=== PATIENT | female | born 1990 | race Caucasian/White ===

== ENCOUNTER → 2017-11-25 | Outpatient (CLI) | payer OTHER | END | disposition home or self-care (01) | LOC: PLD 08:08 → LAB SHORT 08:08 | DX: D22.21 Melanocytic nevi of right ear and external auricular canal (principal) | CPT/HCPCS: 88305 ==

== ENCOUNTER → 2017-12-10 | Outpatient (CLI) | payer OTHER ==
[2017-12-11 11:28] LABS: Candida species (DNA Probe) Negative (NEGATIVE); G. vaginalis (DNA Probe) Positive (NEGATIVE); T. vaginalis (DNA Probe) Negative (NEGATIVE)
== END | disposition home or self-care (01) ==
LOC: LAB 11:31
PROVIDERS: Nurse Practitioner Obstetrics & Gynecology
DX: N76.0 Acute vaginitis (principal)
CPT/HCPCS: 87480; 87510; 87660

== ENCOUNTER → 2018-01-05 | Outpatient (CLI) | payer OTHER ==
[2018-01-07 13:33] LABS: HPV Genotype 16 Not Detected (NOTDET); HPV Genotype 18 Not Detected (NOTDET)
[2018-01-17 10:55] LABS: HPV High Risk Other Detected (NOTDET)
== END | disposition home or self-care (01) ==
LOC: LAB 12:25
PROVIDERS: Nurse Practitioner Obstetrics & Gynecology
DX: Z01.419 Encounter for gynecological examination (general) (routine) without abnormal findings (principal)
CPT/HCPCS: 87624; G0123

== ENCOUNTER → 2018-05-27 | Outpatient (CLI) | payer OTHER | END | disposition home or self-care (01) | LOC: LAB 12:13 → LAB SHORT 12:13 | PROVIDERS: Obstetrics & Gynecology | DX: Z36.89 Encounter for other specified antenatal screening (principal) | CPT/HCPCS: G0123 ==

== ENCOUNTER → 2018-11-08 | Outpatient (CLI) | payer BC ==
[~2018-11-08] MED LIST: CALCIUM; DOCU100 PO; IBUP800 PO; LABE200 PO
== END | disposition home or self-care (01) ==
LOC: LAB 09:49 → LAB SHORT 09:49
DX: Z34.00 Encounter for supervision of normal first pregnancy, unspecified trimester (principal)
CPT/HCPCS: 87081; 87653

== ENCOUNTER 2018-11-20 15:53 | Inpatient (IN) | payer BC ==
[~2018-11-20] VITALS: Ht 157.5 cm; Wt 73.9 kg
[2018-11-20 16:37] LABS: BASOPHILS ABSOLUTE AUTO 0.02 K/mm3 (0.00-0.23); BASOPHILS PERCENT AUTO 0 % (0-2); EOSINOPHILS ABSOLUTE AUTO 0.02 K/mm3 (0.00-0.68); EOSINOPHILS PERCENT AUTO 0 % (0-6); Hematocrit 43.2 % (33.0-51.0); Hemoglobin 14.8 g/dL (11.5-16.0); IMMATURE GRAN ABSOLUTE AUTO 0.05 K/mm3 (0.00-0.10); IMMATURE GRAN PERCENT AUTO 0 % (0-1); LYMPHOCYTES ABSOLUTE AUTO 1.85 K/mm3 (0.84-5.20); LYMPHOCYTES PERCENT AUTO 12 % (21-46); MONOCYTES PERCENT AUTO 7 % (4-13); Mean Corpuscular HGB 27.6 pg (26.0-34.0); Mean Corpuscular HGB Conc 34.3 g/dL (31.5-36.5); Mean Corpuscular Volume 81 fL (80-100); Mean Platelet Volume 11.5 fL (9.1-12.4); NEUTROPHILS ABSOLUTE AUTO 12.46 K/mm3 (1.96-9.15); NEUTROPHILS PERCENT AUTO 81 % (41-73); Platelet Count 276 K/mm3 (150-400); RDW Coefficient Variation 14.5 % (11.7-14.2); RDW Standard Deviation 42.2 fL (35.1-46.3); Red Blood Cell Count 5.36 M/mm3 (3.80-5.20)
[2018-11-20] MEDS ORDERED: LABE200 PO (19:09)
[2018-11-20] MEDS ORDERED: DOCU100 PO (19:10)
[2018-11-20] MEDS ORDERED: CALCIUM (19:12)
[2018-11-21 05:18] LABS: Hematocrit 38.9 % (33.0-51.0); Hemoglobin 13.2 g/dL (11.5-16.0); Mean Corpuscular HGB 27.4 pg (26.0-34.0); Mean Corpuscular HGB Conc 33.9 g/dL (31.5-36.5); Mean Corpuscular Volume 81 fL (80-100); Mean Platelet Volume 11.3 fL (9.1-12.4); Platelet Count 224 K/mm3 (150-400); RDW Coefficient Variation 14.7 % (11.7-14.2); RDW Standard Deviation 43.1 fL (35.1-46.3); Red Blood Cell Count 4.81 M/mm3 (3.80-5.20); White Blood Cell Count 15.87 K/mm3 (4.00-11.30)
[2018-11-21] MEDS ORDERED: IBUP800 PO (13:47)
== END 2018-11-21 17:42 | disposition home or self-care (01) | DRG 807 ==
LOC: OBS 15:53 → BC 15:55 → OBS 16:00 → BC 16:00
PROVIDERS: ADMIT Obstetrics & Gynecology
PROC: 10E0XZZ Delivery of Products of Conception, External Approach (ICD-10-PCS; principal; 2018-11-20)
PROC: 0KQM0ZZ Repair Perineum Muscle, Open Approach (ICD-10-PCS; 2018-11-20)
PROC: 3E0234Z Introduction of Serum, Toxoid and Vaccine into Muscle, Percutaneous Approach (ICD-10-PCS; 2018-11-21)
DX: O62.3 Precipitate labor (principal); Z37.0 Single live birth; O70.1 Second degree perineal laceration during delivery; Z3A.38 38 weeks gestation of pregnancy; Z23 Encounter for immunization
CPT/HCPCS: 36415; 85025; 85027; 90471; 90707; J1885; J2590; J3010; J7120

== ENCOUNTER → 2019-01-05 | Outpatient (CLI) | payer BC ==
[2019-01-06 08:48] LABS: Candida species (DNA Probe) Negative (NEGATIVE); G. vaginalis (DNA Probe) Positive (NEGATIVE); T. vaginalis (DNA Probe) Negative (NEGATIVE)
== END | disposition home or self-care (01) ==
LOC: LAB SHORT 16:33 → LAB 16:33
PROVIDERS: Obstetrics & Gynecology
DX: N76.0 Acute vaginitis (principal)
CPT/HCPCS: 87480; 87510; 87660

== ENCOUNTER → 2019-08-15 | Outpatient (CLI) | payer BC | END | disposition home or self-care (01) | LOC: PLD 07:35 → LAB SHORT 07:35 | DX: B07.0 Plantar wart (principal) | CPT/HCPCS: 88305 ==

== ENCOUNTER 2020-02-07 19:02 | Emergency (ER) | payer OTHER, BC ==
[~2020-02-07] VITALS: Ht 157.5 cm; Wt 63.0 kg
[2020-02-09 07:07] LABS: HCV ANTIBODY <0.1 (0.0-0.9); HIV SCREEN 4TH GENERATION WRFX Non Reactive (Non Reactive)
== END 2020-02-07 19:15 | disposition home or self-care (01) ==
LOC: ER 19:02
PROVIDERS: Physician Assistant
DX: Z77.21 Contact with and (suspected) exposure to potentially hazardous body fluids (principal); I10 Essential (primary) hypertension; Z91.040 Latex allergy status; Z87.891 Personal history of nicotine dependence
CPT/HCPCS: 84460; 86317; 86703; 86803; 87340; 87389; 99282

== ENCOUNTER → 2020-03-01 | Outpatient (CLI) | payer BC ==
[2020-03-01 12:42] LABS: Protein, Urine Quantitative 5.1 mg/dL (0.0-11.9)
== END | disposition home or self-care (01) ==
LOC: LAB 09:23 → LAB SHORT 09:23 → LAB FUT 02-27 09:40
PROVIDERS: Obstetrics & Gynecology
DX: O16.9 Unspecified maternal hypertension, unspecified trimester (principal)
CPT/HCPCS: 36415; 81050; 84156

== ENCOUNTER → 2020-03-23 | Outpatient (CLI) | payer BC ==
[2020-03-25 09:08] LABS: HIV SCREEN 4TH GENERATION WRFX Non Reactive (Non Reactive)
== END | disposition home or self-care (01) ==
LOC: LAB EV 13:39 → LAB SHORT 13:39
PROVIDERS: Physician Assistant
DX: Z20.9 Contact with and (suspected) exposure to unspecified communicable disease (principal)
CPT/HCPCS: 86803; 87389

== ENCOUNTER → 2020-03-26 | Outpatient (CLI) | payer BC ==
[2020-03-27 10:30] LABS: Candida species (DNA Probe) Negative (NEGATIVE); G. vaginalis (DNA Probe) Negative (NEGATIVE); T. vaginalis (DNA Probe) Negative (NEGATIVE)
== END | disposition home or self-care (01) ==
LOC: LAB SHORT 14:00 → LAB 14:00
PROVIDERS: Obstetrics & Gynecology
DX: N89.8 Other specified noninflammatory disorders of vagina (principal)
CPT/HCPCS: 87480; 87510; 87660

== ENCOUNTER → 2020-07-16 | Outpatient (CLI) | payer BC | END | disposition home or self-care (01) | LOC: LAB SHORT 20:20 → LAB 20:20 | DX: Z34.83 Encounter for supervision of other normal pregnancy, third trimester (principal) | CPT/HCPCS: 82950 ==

== ENCOUNTER → 2020-08-13 | Outpatient (CLI) | payer OTHER, BC ==
[2020-08-14 09:10] LABS: HCV ANTIBODY 0.1 (0.0-0.9); HIV SCREEN 4TH GENERATION WRFX Non Reactive (Non Reactive)
== END | disposition home or self-care (01) ==
LOC: LAB SHORT 15:26 → LAB EV 15:26
PROVIDERS: Family Medicine
DX: Z20.9 Contact with and (suspected) exposure to unspecified communicable disease (principal)
CPT/HCPCS: 84460; 86317; 86803; 87389

== ENCOUNTER 2020-10-05 20:23 | Inpatient (IN) | payer BC ==
[~2020-10-05] VITALS: Ht 157.5 cm; Wt 75.0 kg
[2020-10-05] MEDS ORDERED: ASPI81CH PO (20:44)
[2020-10-05] MEDS ORDERED: PRENATAL TABLE1 EAC2 PO (20:44)
[2020-10-05 21:03] LABS: BASOPHILS ABSOLUTE AUTO 0.03 K/mm3 (0.00-0.23); BASOPHILS PERCENT AUTO 0 % (0-2); EOSINOPHILS ABSOLUTE AUTO 0.06 K/mm3 (0.00-0.68); EOSINOPHILS PERCENT AUTO 1 % (0-6); Hematocrit 45.8 % (33.0-51.0); IMMATURE GRAN ABSOLUTE AUTO 0.07 K/mm3 (0.00-0.10); IMMATURE GRAN PERCENT AUTO 1 % (0-1); LYMPHOCYTES ABSOLUTE AUTO 2.66 K/mm3 (0.84-5.20); LYMPHOCYTES PERCENT AUTO 27 % (21-46); MONOCYTES ABSOLUTE AUTO 1.06 K/mm3 (0.16-1.47); MONOCYTES PERCENT AUTO 11 % (4-13); Mean Corpuscular HGB Conc 32.8 g/dL (31.5-36.5); Mean Corpuscular Volume 79 fL (80-100); Mean Platelet Volume 11.7 fL (9.1-12.4); NEUTROPHILS ABSOLUTE AUTO 5.88 K/mm3 (1.96-9.15); NEUTROPHILS PERCENT AUTO 60 % (41-73); Platelet Count 295 K/mm3 (150-400); RDW Standard Deviation 42.7 fL (35.1-46.3); Red Blood Cell Count 5.78 M/mm3 (3.80-5.20); White Blood Cell Count 9.76 K/mm3 (4.00-11.30)
[2020-10-05 21:43] LABS: Influenza A, PCR Negative (NEGATIVE); Influenza B, PCR Negative (NEGATIVE); Resp Syncytial Virus, PCR Negative (NEGATIVE); SARS-Cov-2 (COVID-19) PCR, MMC Negative (NEGATIVE)
[2020-10-06 05:49] LABS: Hematocrit 41.8 % (33.0-51.0); Hemoglobin 13.7 g/dL (11.5-16.0); Mean Corpuscular HGB 26.3 pg (26.0-34.0); Mean Corpuscular HGB Conc 32.8 g/dL (31.5-36.5); Mean Corpuscular Volume 80 fL (80-100); Mean Platelet Volume 11.3 fL (9.1-12.4); Platelet Count 236 K/mm3 (150-400); RDW Coefficient Variation 15.1 % (11.7-14.2); RDW Standard Deviation 44.1 fL (35.1-46.3); White Blood Cell Count 16.05 K/mm3 (4.00-11.30)
--- NOTE | 2020-10-06 14:34 | NUR ---
pt sleeping soundly.
== END 2020-10-06 21:50 | disposition home or self-care (01) | DRG 806 ==
LOC: OBS 20:23 → BC 20:24 → OBS 20:35 → BC 20:37
PROVIDERS: ADMIT Advanced Practice Midwife
PROC: 10E0XZZ Delivery of Products of Conception, External Approach (ICD-10-PCS; principal; 2020-10-05)
PROC: 0UQG7ZZ Repair Vagina, Via Natural or Artificial Opening (ICD-10-PCS; 2020-10-05)
DX: O10.92 Unspecified pre-existing hypertension complicating childbirth (principal); O71.4 Obstetric high vaginal laceration alone; Z37.0 Single live birth; O32.6XX0 Maternal care for compound presentation, not applicable or unspecified; Z3A.39 39 weeks gestation of pregnancy; Z20.828 Contact with and (suspected) exposure to other viral communicable diseases; Z87.891 Personal history of nicotine dependence
CPT/HCPCS: 0241U; 36415; 85025; 85027; J1885; J2590; J7120